=== PATIENT | female | born 1995 | race Caucasian/White ===

== ENCOUNTER 2017-01-13 20:49 | Emergency (ER) | payer OTHER ==
[~2017-01-13] VITALS: Ht 152.4 cm; Wt 85.5 kg
[~2017-01-13 20:49] MED LIST: FAMO-96 PO
[2017-01-13 20:52] VITALS: Ht 152.4 cm; Wt 85.5 kg
[2017-01-13 21:22] LABS: URINE BLOOD (Dip) POC Negative (NEGATIVE)
[2017-01-13] MEDS ORDERED: SOD CHLORIDE 0.9% 1,000 ML IV STA (21:26)
[2017-01-13] MEDS ORDERED: ONDANSETRON 4 MG INJ IV STA (21:26)
[2017-01-13 21:37] LABS: ADD SCAN DIFF NO
[2017-01-13 21:39] LABS: BASOPHIL # 0.1 10^3/ul (0.0-0.1); BASOPHILS % 0.5 % (0.0-2.0); EOSINOPHILS # 0.3 10^3/ul (0.0-0.5); EOSINOPHILS % 3.1 % (0.0-7.0); HEMATOCRIT 37.7 % (37.0-47.0); HEMOGLOBIN 12.6 g/dl (12.0-16.0); LYMPHOCYTES # 3.4 10^3/ul (0.8-2.9); LYMPHOCYTES % 31.4 % (15.0-51.0); MEAN CORPUSCULAR HEMOGLOBIN 28.8 pg (29.0-33.0); MEAN CORPUSCULAR HGB CONC 33.4 g/dl (32.0-37.0); MEAN CORPUSCULAR VOLUME 86.1 fl (82.0-101.0); MEAN PLATELET VOLUME 9.5 fl (7.4-10.4); MONOCYTE # 0.8 10^3/ul (0.3-0.9); NEUTROPHIL # 6.3 10^3/ul (1.6-7.5); NEUTROPHILS % 57.8 % (39.0-77.0); PLATELET COUNT 360 10^3/UL (140-415); RED BLOOD COUNT 4.38 10^6/ul (4.20-5.40); RED CELL DISTRIBUTION WIDTH 12.8 % (11.5-14.5); WHITE BLOOD COUNT 10.8 10^3/ul (4.8-10.8)
[2017-01-13 21:54] LABS: ADD UMIC NO; UR ASCORBIC ACID NEGATIVE (NEGATIVE); UR BILIRUBIN (Dip) NEGATIVE (NEGATIVE); UR BLOOD (Dip) NEGATIVE (NEGATIVE); UR CLARITY CLEAR (CLEAR); UR COLOR YELLOW (YELLOW); UR GLUCOSE (Dip) NEGATIVE (NEGATIVE); UR KETONES (Dip) NEGATIVE (NEGATIVE); UR LEUKOCYTE ESTERASE (Dip) NEGATIVE Leu/ul (NEGATIVE); UR NITRITE (Dip) NEGATIVE (NEGATIVE); UR TOTAL PROTEIN (Dip) NEGATIVE (NEGATIVE); UR UROBILINOGEN (Dip) NEGATIVE (NEGATIVE)
[2017-01-13 21:56] LABS: INR 1.12; PROTIME 14.4 Sec (12.2-14.2); PT RATIO 1.1
[2017-01-13 21:57] LABS: ALBUMIN 4.9 g/dl (3.3-4.9); ALBUMIN/GLOBULIN RATIO 1.53; BILIRUBIN,INDIRECT 0.2 mg/dl (0-1.1); BILIRUBIN,TOTAL 0.2 mg/dl (0.2-1.3); CALCIUM 9.1 mg/dl (8.4-10.2); CREATININE 0.81 mg/dl (0.44-1.00); POTASSIUM 3.6 mmol/L (3.5-5.1); TOTAL PROTEIN 8.1 g/dl (6.1-8.1)
[2017-01-13] MEDS ORDERED: PANTOPRAZOLE 40 MG INJ IV ONE (22:30)
--- NOTE | 2017-01-13 23:06 | RADRPT ---
PROCEDURE: CT ABDOMEN/PELVIS WITHOUT CONTRAST CLINICAL INDICATION: 21-year-old female with abdominal pain and hematemesis. TECHNIQUE: The study was performed utilizing a [employer] VCT 64-slice CT scanner. Direct axia l sections were obtained through the abdomen and pelvis without the use of intravenous contrast mate rial. Sagittal and coronal reformations were obtained. One or more of the following dose reduction t echniques were utilized: automated exposure control, adjustment of the mA and/or kV according to pat ient's size or use of iterative reconstruction technique. The images were reviewed on a PACS workst at[employer]. CTD/vol = 18.8 mGy; Total Exam DLP = 1068.2 mGy-cm. COMPARISON: Ultrasound right upper quadrant February 19, 2016. FINDINGS: There is minimal left basilar linear subsegmental atelectasis. There is no evidence for significant pleural effusion. The liver has a normal size and contour without focal areas of abnormal density. No intrahepatic nor extrahepatic biliary ductal dilatation is seen. The gallbladder demonstrates no wall thickening nor pericholecystic fluid. No biliary stones are evident. The pancreas is without ar eas of abnormal attenuation. The spleen is identified and has a normal size without abnormal densit y. The adrenal glands are unremarkable. The kidneys are without abnormal density. No hydroureteronep hrosis nor nephroureterolithiasis is evident. The urinary bladder contains urine. There is no eviden ce for bowel obstruction. The appendix is visualized and is without abnormal thickening or surround ing inflammatory reaction. The uterus is anteflexed. There is no significant free fluid. The aorto iliac vessels are without aneurysmal dilatation. The osseous structures are intact. IMPRESSION: Unremarkable noncontrast CT scan of the abdomen and pelvis. .Colt Puga MD, Date Time Electronically viewed and signed by .Colt Puga MD, MD on 01/13/2017 23:05 .M/
[2017-01-13] MEDS ORDERED: ONDA4TAB14 PO (23:09)
[2017-01-13] MEDS ORDERED: SUCR1TAB56 PO (23:09)
--- NOTE | 2017-01-13 23:12 | ERD ---
ER Documentation Chief Complaint Date/Time DATE: 01/13/17 TIME: 23:10 Chief Complaint VOMITING BLOOD WITH ABD PAIN X 2 HRS HPI 21-year-old female is that she was volume of abdominal pain for 2 hours. Pain in the abdomen was epigastric location burning in sensation. Patient has history of gastritis versus gastroesophageal reflux disease. No fevers no chills. Nonbilious vomiting. 2 episodes of hematemesis. Blood streaks noted in the vomitus. No sick contacts. No trauma. No other current complaints ROS All systems reviewed and are negative except as per history of present illness. Medications Home Meds Active Scripts Ondansetron (Ondansetron Odt) 4 Mg Tab.rapdis, 4 MG PO Q6H Y for NAUSEA AND/OR VOMITING, #10 TAB Prov:VIKTORIYA PATIÑO 01/13/17 Sucralfate* (Carafate*) 1 Gm Tab, 1 GM PO QID, #60 TAB Prov:VIKTORIYA PATIÑO 01/13/17 Famotidine* (Pepcid*) 20 Mg Tablet, 20 MG PO BID, #30 TAB Prov:KRYSTEN CARNEY PA-C 02/20/16 Allergies Allergies: Coded Allergies: No Known Drug Allergies (Verified Allergy, Unknown, 12/06/14) PMhx/Soc History of Surgery: No Anesthesia Reaction: No Hx Neurological Disorder: No Hx Respiratory Disorders: Yes (Asthma) Hx Cardiac Disorders: No Hx Psychiatric Problems: No Hx Miscellaneous Medical Probl: No Hx Alcohol Use: No Hx Substance Use: No Hx Tobacco Use: No Smoking Status: Never smoker Physical Exam Vitals Vital Signs Date Time Temp Pulse Resp B/P Pulse Ox O2 Delivery O2 Flow Rate FiO2 01/13/17 20:52 98.4 78 18 132/83 100 Physical Exam Const: [] Head: Atraumatic Eyes: Normal Conjunctiva ENT: Normal External Ears, Nose and Mouth. Neck: Full range of motion..~ No meningismus. Resp: Clear to auscultation bilaterally Cardio: Regular rate and rhythm, no murmurs Abd: Soft, non tender, non distended. Normal bowel sounds Skin: No petechiae or rashes Back: No midline or flank tenderness Ext: No cyanosis, or edema Neur: Awake and alert Psych: Normal Mood and Affect Result Diagram: 7/03/24 [id number] Results 24 hrs Laboratory Tests Test 01/13/17 21:10 01/13/17 21:15 01/13/17 21:25 Urine Color YELLOW Urine Clarity CLEAR Urine pH 5.0 Urine Specific [place] 1.020 Urine Ketones NEGATIVEmg/dL Urine Nitrite NEGATIVEmg/dL Urine Bilirubin NEGATIVEmg/dL Urine Urobilinogen NEGATIVEmg/dL Urine Leukocyte Esterase NEGATIVELeu/ul Urine Hemoglobin NEGATIVEmg/dL Urine Glucose NEGATIVEmg/dL Urine Total Protein NEGATIVEmg/dl White Blood Count 10.810^3/ul Red Blood Count 4.3810^6/ul Hemoglobin 12.6g/dl Hematocrit 37.7% Mean Corpuscular Volume 86.1fl Mean Corpuscular Hemoglobin 28.8pg Mean Corpuscular Hemoglobin Concent 33.4g/dl Red Cell Distribution Width 12.8% Platelet Count 16765^3/UL Mean Platelet Volume 9.5fl Neutrophils % 57.8% Lymphocytes % 31.4% Monocytes % 7.0% Eosinophils % 3.1% Basophils % 0.5% Nucleated Red Blood Cells % 0.0/100WBC Neutrophils # 6.310^3/ul Lymphocytes # 3.410^3/ul Monocytes # 0.810^3/ul Eosinophils # 0.310^3/ul Basophils # 0.110^3/ul Nucleated Red Blood Cells # 0.010^3/ul Prothrombin Time 14.4Sec Prothrombin Time Ratio 1.1 INR International Normalized Ratio 1.12 Sodium Level 137mmol/L Potassium Level 3.6mmol/L Chloride Level 104mmol/L Carbon Dioxide Level 24mmol/L Anion Gap 13 Blood Urea Nitrogen 13mg/dl Creatinine 0.81mg/dl Glucose Level 84mg/dl Calcium Level 9.1mg/dl Total Bilirubin 0.2mg/dl Direct Bilirubin 0.00mg/dl Indirect Bilirubin 0.2mg/dl Aspartate Amino Transf (AST/SGOT) 21IU/L Alanine Aminotransferase (ALT/SGPT) 25IU/L Alkaline Phosphatase 90IU/L Total Protein 8.1g/dl Albumin 4.9g/dl Globulin 3.20g/dl Albumin/Globulin Ratio 1.53 Lipase 87U/L Bedside Urine pH (LAB) 5.5 Bedside Urine Protein (LAB) Negative Bedside Urine Glucose (UA) Negative Bedside Urine Ketones (LAB) Negative Bedside Urine Blood Negative Bedside Urine Nitrite (LAB) Negative Bedside Urine Leukocyte Esterase (L Negative Current Medications Medications (Trade) Dose Ordered Sig/Gato Route PRN Reason Start Time Stop Time Status Last Admin Dose Admin Sodium Chloride (NS) 1,000 ml @ 1,000 mls/hr Q1H STAT IV 01/13/17 21:26 01/13/17 22:25 DC 01/13/17 21:30 Ondansetron HCl (Zofran Inj) 4 mg ONCE STAT IV 01/13/17 21:26 01/13/17 21:27 DC 01/13/17 21:29 Pantoprazole (Protonix Iv) 40 mg ONCE ONCE IV 01/13/17 22:30 01/13/17 22:31 DC 01/13/17 22:35 Procedures/MDM Medical decision-making: Very pleasant patient comes in essentially for erosive gastritis symptoms. At this point clinically stable. Feels much better. Stable for outpatient management. Patient be discharged home. Return in 8 hours for serial abdominal exams. Departure Diagnosis: Primary Impression: Hematemesis Nausea presence: with nausea Qualified Code: K92.0 - Hematemesis with nausea Condition: Stable Patient Instructions: Gastritis Vs. Ulcer VIKTORIYA PATIÑO Jan 13, 2017 23:11
== END 2017-01-13 23:18 | disposition home or self-care (01) ==
LOC: E/R 20:49
DX: K92.0 Hematemesis (principal); J45.909 Unspecified asthma, uncomplicated
CPT/HCPCS: 74176; 80053; 81003; 83690; 85025; 85610; C9113; J2405; J7030; 36415; 96374; 96375